=== PATIENT | male | born 2000 | race Caucasian/White ===

== ENCOUNTER 2024-09-06 23:50 | Emergency (ER) | payer OTHER ==
[~2024-09-06] VITALS: Ht 182.9 cm; Wt 91.8 kg
[2024-09-06 23:51] VITALS: TEMP 98.8
[2024-09-07] MEDS ORDERED: Ketorolac 15 MG/ML VIAL IM ONE (01:00)
[2024-09-07] MEDS ORDERED: ROBAXIN 50500 MG/TAB PO (01:39)
[2024-09-07] MEDS ORDERED: Methocarbamol 500 MG TAB PO ONE (01:45)
[2024-09-07 01:55] VITALS: BP 115/79; PULSE 109
== END 2024-09-07 01:55 | disposition home or self-care (01) ==
LOC: COL.ER 23:50
DX: M54.50 Low back pain, unspecified (principal); M25.552 Pain in left hip; M25.511 Pain in right shoulder; Y04.2XXA Assault by strike against or bumped into by another person, initial encounter
CPT/HCPCS: J1885